=== PATIENT | female | born 1995 | race African-American/Black ===

== ENCOUNTER 2016-09-14 08:21 | Emergency (ER) | payer MEDICAID ==
[~2016-09-14] VITALS: Ht 162.6 cm; Wt 93.4 kg
[~2016-09-14 08:21] MED LIST: PRENATAL VITAMINS TABLET; [UNRECOGNIZED DRUG - CODE] PO
[2016-09-14 08:28] VITALS: BP 127/68
--- NOTE | 2016-09-14 08:32 | NUR ---
Patient ambulated to bed 08.
--- NOTE | 2016-09-14 08:38 | NUR ---
Dr. Henry evaluating patient at bedside.
[2016-09-14] MEDS ORDERED: KETOROLAC 60 MG/2 ML VIAL IM ONE (08:40)
--- NOTE | 2016-09-14 08:41 | NUR ---
21/F presents to ED for evaluation of bilateral upper arm pain for the past 3-4 days. Patient states "I don't drink milk. I don't know if I am low on calcium or vitamin D or something." Patient denies any injury or trauma. Pt states "The pain is inside my bones and muscle." Pt states she sleeps with her arms up and does not know if that is contributing to pain. 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 Patient c/o 9/10, dull, intermittent, non radiating. Pt c/o worse pain to left arm than the right. Right arm has full ROM. Pt noted with limited ROM to left arm d/t pain. No deformities noted. Patient is AOX4, ambulates with steady gait. VSS. Pt denies taking medications at home for pain.
--- NOTE | 2016-09-14 08:44 | NUR ---
Patient taken to x-ray via w/c.
--- NOTE | 2016-09-14 08:49 | NUR ---
Patient back from XRAY via wheelchair per tech.
--- NOTE | 2016-09-14 09:10 | NUR ---
Sling applied to left arm. Pt tolerated well.
[2016-09-14 09:30] VITALS: BP 137/100
--- NOTE | 2016-09-14 09:30 | NUR ---
Chart checked and completed. The patient's care was reviewed and supervised by Nilam Diaz RN.
== END 2016-09-14 09:30 | disposition home or self-care (01) ==
LOC: MED 08:21
DX: M75.52 Bursitis of left shoulder (principal)
CPT/HCPCS: 73030; 96372; 99284; J1885

== ENCOUNTER 2019-01-07 09:56 | Emergency (ER) | payer MEDICAID ==
[~2019-01-07] VITALS: Ht 162.6 cm; Wt 88.9 kg
[2019-01-07 10:01] VITALS: BP 143/108
--- NOTE | 2019-01-07 10:01 | NUR ---
Patient ambulated to bed 9. RN evaluating patient at bedside.
--- NOTE | 2019-01-07 10:15 | NUR ---
Pt c/o runny nose, congestion, cough x3 days, took mucinex sinus max with no relief. PATIENT STATES PAIN OF 0/10 AT THIS TIME; VSS; PATIENT POSITIONED FOR COMFORT; HOB ELEVATED; BEDRAILS UP X1; BED DOWN. ER MD MADE AWARE OF PT STATUS.
[2019-01-07 10:29] VITALS: BP 131/79
--- NOTE | 2019-01-07 10:29 | NUR ---
Patient discharged with v/s stable. Written and verbal after care instructions given and explained. Patient alert, oriented and verbalized understanding of instructions. Ambulatory with steady gait. All questions addressed prior to discharge. ID band removed. Patient advised to follow up with PMD. Rx of Claritin-D and Leigh Ann Murcia given. Patient educated on indication of medication including possible reaction and side effects. Opportunity to ask questions provided and answered.
== END 2019-01-07 10:29 | disposition home or self-care (01) ==
LOC: MED 09:56
DX: B34.9 Viral infection, unspecified (principal); R11.10 Vomiting, unspecified; R19.7 Diarrhea, unspecified; F17.200 Nicotine dependence, unspecified, uncomplicated; R03.0 Elevated blood-pressure reading, without diagnosis of hypertension
CPT/HCPCS: 81002; 81025; 99283

== ENCOUNTER 2019-04-28 12:39 | Emergency (ER) | payer MEDICAID ==
[~2019-04-28] VITALS: Ht 162.6 cm; Wt 86.2 kg
[2019-04-28 12:40] VITALS: BP 137/55
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
--- NOTE | 2019-04-28 13:00 | NUR ---
dr. ricketts evaluating pt
[2019-04-28 14:16] VITALS: BP 137/55
--- NOTE | 2019-04-28 14:16 | NUR ---
Patient discharged with v/s stable. Written and verbal after care instructions given and explained. Patient verbalized understanding. ambulatory with [place] [employer] in custody. All questions addressed prior to discharge. Advised to follow up with PMD.
== END 2019-04-28 14:16 ==
LOC: MED 12:39
DX: S62.601A Fracture of unspecified phalanx of left index finger, initial encounter for closed fracture (principal); Y04.0XXA Assault by unarmed brawl or fight, initial encounter; Y93.89 Activity, other specified; Y92.89 Other specified places as the place of occurrence of the external cause; Y99.8 Other external cause status
CPT/HCPCS: 73140; 99283

== ENCOUNTER 2019-07-16 13:17 | Emergency (ER) | payer MEDICAID ==
--- NOTE | 2019-07-16 13:45 | NUR ---
LEFT WITHOUT BEING TRIAGED
== END 2019-07-16 13:45 | disposition left against medical advice (07) ==
LOC: MED 13:17
DX: Z53.21 Procedure and treatment not carried out due to patient leaving prior to being seen by health care provider (principal)

== ENCOUNTER 2019-09-25 13:03 | Emergency (ER) | payer MEDICAID ==
[~2019-09-25] VITALS: Ht 162.6 cm; Wt 88.9 kg
--- NOTE | 2019-09-25 13:12 | NUR ---
Patient ambulated to bed 7. RN evaluating patient at bedside.
[2019-09-25 13:13] VITALS: BP 115/65
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
--- NOTE | 2019-09-25 13:35 | NUR ---
Dr. Sheets is evaluating the patient at bedside.
--- NOTE | 2019-09-25 13:50 | NUR ---
Dr. Flores at bedside with philosophy instructor for pelvic exam
--- NOTE | 2019-09-25 13:58 | NUR ---
Female Drywall Foreman KARLOS JASON accompanied ER MD DR CHENEY FOR female patient for Pelvic Exam.
--- NOTE | 2019-09-25 14:01 | NUR ---
VAG SWAB SENT TO LAB
[2019-09-25 14:42] LABS: APPEARANCE,URINE SL CLOUDY (CLEAR); BILIRUBIN,URINE NEGATIVE (NEGATIVE); BLOOD, URINE NEGATIVE (NEGATIVE); COLOR,URINE YELLOW (YELLOW); LEUKOCYTE ESTERASE ,URINE NEGATIVE (NEGATIVE); NITRITE, URINE NEGATIVE (NEGATIVE); UGLUCOSE NEGATIVE (NEGATIVE)
[2019-09-25 16:25] LABS: RAPID PLASMA REAGIN NON-REACTIVE (Non Reactiv)
[2019-09-25 16:31] VITALS: BP 120/62
--- NOTE | 2019-09-25 16:31 | NUR ---
Patient discharged with v/s stable. Written and verbal after care instructions given and explained. Patient alert, oriented and verbalized understanding of instructions. Ambulatory with steady gait. All questions addressed prior to discharge. ID band removed. Patient advised to follow up with PMD. Rx of flagyl given. Patient educated on indication of medication including possible reaction and side effects. Opportunity to ask questions provided and answered.
[2019-09-28 06:12] LABS: CHLAMYDIA TRACHOMATIS AMP DNA Negative (Negative)
== END 2019-09-25 16:31 | disposition home or self-care (01) ==
LOC: MED 13:03
DX: A59.9 Trichomoniasis, unspecified (principal)
CPT/HCPCS: 36415; 81003; 81025; 86592; 87070; 87205; 87210; 87491; 99283

== ENCOUNTER 2022-01-21 21:00 | Emergency (ER) | payer BC, MEDICAID | END 2022-01-21 21:37 | disposition left against medical advice (07) | LOC: MED 21:00 | DX: O26.891 Other specified pregnancy related conditions, first trimester (principal); R53.1 Weakness; Z3A.09 9 weeks gestation of pregnancy; Z53.21 Procedure and treatment not carried out due to patient leaving prior to being seen by health care provider ==